=== PATIENT | female | born 1985 | race African-American/Black ===

== ENCOUNTER 2017-08-24 11:13 | Emergency (ER) | payer OTHER ==
[2017-08-24] MEDS: PANTOPRAZOLE 40 MG INJ IV (12:53)
[2017-08-24] MEDS: morphine 4 MG/ML VIAL IV (12:53)
[2017-08-24] MEDS: ONDANSETRON 4 MG INJ IV (12:53)
[2017-08-24] MEDS: SOD CHLORIDE 0.9% 1,000 ML IV (12:53)
[2017-08-24 13:00] LABS: ADD MAN DIFF? NO
[2017-08-24 13:02] LABS: WHITE BLOOD COUNT 9.6 10^3/ul (4.8-10.8)
[2017-08-24 13:02] LABS: BASOPHILS % 0.3 % (0.0-2.0); HEMATOCRIT 40.4 % (37.0-47.0); HEMOGLOBIN 13.3 g/dl (12.0-16.0); LYMPHOCYTES # 0.9 10^3/ul (0.8-2.9); LYMPHOCYTES % 8.9 % (15.0-51.0); MEAN CORPUSCULAR HEMOGLOBIN 28.1 pg (29.0-33.0); MEAN CORPUSCULAR HGB CONC 32.9 g/dl (32.0-37.0); MEAN CORPUSCULAR VOLUME 85.2 fl (82.0-101.0); MEAN PLATELET VOLUME 9.8 fl (7.4-10.4); MONOCYTE # 0.2 10^3/ul (0.3-0.9); MONOCYTES % 2.5 % (0.0-11.0); NEUTROPHIL # 8.4 10^3/ul (1.6-7.5); NEUTROPHILS % 87.9 % (39.0-77.0); PLATELET COUNT 232 10^3/UL (140-415); RED BLOOD COUNT 4.74 10^6/ul (4.20-5.40); RED CELL DISTRIBUTION WIDTH 13.8 % (11.5-14.5)
[2017-08-24 13:07] LABS: ADD UMIC YES; UR ASCORBIC ACID 40 mg/dL (NEGATIVE); UR BILIRUBIN (Dip) NEGATIVE (NEGATIVE); UR BLOOD (Dip) 2+ mg/dL (NEGATIVE); UR CLARITY SLIGHTLY CLOUDY (CLEAR); UR COLOR YELLOW (YELLOW); UR GLUCOSE (Dip) 2+ mg/dL (NEGATIVE); UR KETONES (Dip) 1+ mg/dL (NEGATIVE); UR LEUKOCYTE ESTERASE (Dip) TRACE Leu/ul (NEGATIVE); UR MUCUS FEW /HPF (NONE SEEN); UR NITRITE (Dip) NEGATIVE (NEGATIVE); UR RBC 92 /HPF (0-5); UR SPECIFIC GRAVITY (Dip) 1.032 (1.003-1.030); UR SQUAMOUS EPITHELIAL CELL FEW /HPF (FEW); UR TOTAL PROTEIN (Dip) 2+ mg/dl (NEGATIVE); UR UROBILINOGEN (Dip) NEGATIVE (NEGATIVE); UR WBC 5 /HPF (0-5)
[2017-08-24 13:22] LABS: ALANINE AMINOTRANSFERASE 26 IU/L (13-69); ALBUMIN 4.6 g/dl (3.3-4.9); ALBUMIN/GLOBULIN RATIO 1.53; ALKALINE PHOSPHATASE 96 IU/L (42-121); AMYLASE 92 U/L (11-123); ANION GAP 16 (8-16); ASPARTATE AMINO TRANSFERASE 25 IU/L (15-46); BILIRUBIN,INDIRECT 0.2 mg/dl (0-1.1); BILIRUBIN,TOTAL 0.2 mg/dl (0.2-1.3); BLOOD UREA NITROGEN 20 mg/dl (7-20); CALCIUM 9.7 mg/dl (8.4-10.2); CARBON DIOXIDE 23 mmol/L (21-31); CHLORIDE 105 mmol/L (97-110); CREATININE 0.75 mg/dl (0.44-1.00); GLUCOSE 167 mg/dl (70-220); LIPASE 75 U/L (23-300); POTASSIUM 3.6 mmol/L (3.5-5.1); SODIUM 140 mmol/L (135-144); TOTAL PROTEIN 7.6 g/dl (6.1-8.1)
[2017-08-24] MEDS: HYDROmorphONE 1 MG/ML SYG IV (13:29)
== END 2017-08-24 16:07 | disposition home or self-care (01) ==
LOC: FTE 11:13
DX: N20.0 Calculus of kidney (principal); F17.210 Nicotine dependence, cigarettes, uncomplicated
CPT/HCPCS: 74176; 80053; 81001; 82150; 83690; 85025; 87086; 96374; 96375; 99285-25

== ENCOUNTER 2017-11-20 04:01 | Emergency (ER) | payer OTHER ==
[2017-11-20] MEDS: PANTOPRAZOLE 40 MG INJ IV (04:50)
[2017-11-20] MEDS: ONDANSETRON 4 MG INJ IV (04:51)
[2017-11-20] MEDS: morphine 4 MG/ML VIAL IV (04:51)
[2017-11-20] MEDS: SOD CHLORIDE 0.9% 1,000 ML IV (04:51)
[2017-11-20 05:14] LABS: WHITE BLOOD COUNT 8.8 10^3/ul (4.8-10.8)
[2017-11-20 05:14] LABS: ADD MAN DIFF? NO; BASOPHILS % 0.1 % (0.0-2.0); HEMATOCRIT 39.5 % (37.0-47.0); HEMOGLOBIN 12.8 g/dl (12.0-16.0); LYMPHOCYTES # 0.7 10^3/ul (0.8-2.9); LYMPHOCYTES % 7.8 % (15.0-51.0); MEAN CORPUSCULAR HEMOGLOBIN 28.3 pg (29.0-33.0); MEAN CORPUSCULAR HGB CONC 32.4 g/dl (32.0-37.0); MEAN CORPUSCULAR VOLUME 87.4 fl (82.0-101.0); MEAN PLATELET VOLUME 10.4 fl (7.4-10.4); MONOCYTE # 0.2 10^3/ul (0.3-0.9); MONOCYTES % 2.7 % (0.0-11.0); NEUTROPHIL # 7.8 10^3/ul (1.6-7.5); NEUTROPHILS % 89.2 % (39.0-77.0); PLATELET COUNT 231 10^3/UL (140-415); RED BLOOD COUNT 4.52 10^6/ul (4.20-5.40); RED CELL DISTRIBUTION WIDTH 14.4 % (11.5-14.5)
[2017-11-20 05:36] LABS: COCAINE Positive (NEGATIVE)
[2017-11-20 05:37] LABS: ALANINE AMINOTRANSFERASE 35 IU/L (13-69); ALBUMIN 4.4 g/dl (3.3-4.9); ALBUMIN/GLOBULIN RATIO 1.41; ALKALINE PHOSPHATASE 102 IU/L (42-121); ANION GAP 18 (8-16); ASPARTATE AMINO TRANSFERASE 26 IU/L (15-46); BILIRUBIN,INDIRECT 0.3 mg/dl (0-1.1); BILIRUBIN,TOTAL 0.3 mg/dl (0.2-1.3); BLOOD UREA NITROGEN 17 mg/dl (7-20); CALCIUM 9.4 mg/dl (8.4-10.2); CARBON DIOXIDE 24 mmol/L (21-31); CHLORIDE 108 mmol/L (97-110); CREATININE 0.76 mg/dl (0.44-1.00); GLUCOSE 152 mg/dl (70-220); LIPASE 76 U/L (23-300); POTASSIUM 4.2 mmol/L (3.5-5.1); SODIUM 146 mmol/L (135-144); TOTAL PROTEIN 7.5 g/dl (6.1-8.1)
[2017-11-20 05:38] LABS: AMPHETAMINE/METHAMPHETAMINE Negative (NEGATIVE); BARBITURATES Negative (NEGATIVE); BENZODIAZEPINES Negative (NEGATIVE); CANNABINOIDS Positive (NEGATIVE); ETHANOL < 10.0 mg/dl; OPIATES Negative (NEGATIVE)
[2017-11-20 06:10] LABS: URINE BLOOD (Dip) POC 2+ (NEGATIVE); URINE KETONES (Dip) POC 2+ (NEGATIVE); URINE LEUKOCYTE EST (Dip) POC Negative (NEGATIVE); URINE NITRITE (Dip) POC Negative (NEGATIVE); URINE TOTAL PROTEIN POC 2+ (NEGATIVE)
[2017-11-20 06:10] LABS: URINE PH (Dip) POC >=9.0 (5.0-8.5)
== END 2017-11-20 06:24 | disposition home or self-care (01) ==
LOC: E/R 04:01
DX: R10.84 Generalized abdominal pain (principal); F14.10 Cocaine abuse, uncomplicated; F12.10 Cannabis abuse, uncomplicated
CPT/HCPCS: 36415; 74176; 80053; 80306; 80307; 81003; 81025; 83690; 84703; 85025; 96374; 96375; 99285-25

== ENCOUNTER 2018-01-03 15:26 | Emergency (ER) | payer OTHER ==
[2018-01-03] MEDS: KETOROLAC 60 MG INJ IM (16:44)
[2018-01-03] MEDS: CEFTRIAXONE 1 GM INJ IM (16:45)
== END 2018-01-03 17:02 | disposition home or self-care (01) ==
LOC: FTE 17:02
DX: L02.31 Cutaneous abscess of buttock (principal); F17.210 Nicotine dependence, cigarettes, uncomplicated
CPT/HCPCS: 96372; 99284-25

== ENCOUNTER 2018-01-07 06:19 | Emergency (ER) | payer OTHER ==
[2018-01-07] MEDS: LIDOCAINE 1% (MDV) 10 ML INJ INFIL (07:26)
== END 2018-01-07 08:37 | disposition home or self-care (01) ==
LOC: FTE 06:19
DX: L02.31 Cutaneous abscess of buttock (principal); R40.2412 Glasgow coma scale score 13-15, at arrival to emergency department
CPT/HCPCS: 10061; 99282-25

== ENCOUNTER 2018-08-05 15:13 | Emergency (ER) | payer OTHER ==
[2018-08-05 15:52] LABS: ADD MAN DIFF? NO
[2018-08-05] MEDS: SOD CHLORIDE 0.9% 1,000 ML IV (15:52)
[2018-08-05] MEDS: KETOROLAC 15 MG INJ IV (15:52)
[2018-08-05] MEDS: ONDANSETRON 4 MG INJ IV (15:52)
[2018-08-05 15:57] LABS: WHITE BLOOD COUNT 13.2 10^3/ul (4.8-10.8)
[2018-08-05 15:57] LABS: BASOPHILS % 0.3 % (0.0-2.0); EOSINOPHILS # 0.1 10^3/ul (0.0-0.5); EOSINOPHILS % 1.1 % (0.0-7.0); HEMATOCRIT 41.8 % (37.0-47.0); HEMOGLOBIN 13.4 g/dl (12.0-16.0); LYMPHOCYTES # 1.9 10^3/ul (0.8-2.9); MEAN CORPUSCULAR HGB CONC 32.1 g/dl (32.0-37.0); MEAN CORPUSCULAR VOLUME 87.3 fl (82.0-101.0); MONOCYTE # 0.7 10^3/ul (0.3-0.9); MONOCYTES % 5.6 % (0.0-11.0); NEUTROPHIL # 10.4 10^3/ul (1.6-7.5); NEUTROPHILS % 78.7 % (39.0-77.0); PLATELET COUNT 222 10^3/UL (140-415); RED BLOOD COUNT 4.79 10^6/ul (4.20-5.40)
[2018-08-05] MEDS: DICYCLOMINE 20 MG INJ IM (16:08)
[2018-08-05 16:14] LABS: ALANINE AMINOTRANSFERASE 35 IU/L (13-69); ALBUMIN 4.3 g/dl (3.3-4.9); ALBUMIN/GLOBULIN RATIO 1.38; ALKALINE PHOSPHATASE 92 IU/L (42-121); ANION GAP 7 (5-13); ASPARTATE AMINO TRANSFERASE 36 IU/L (15-46); BILIRUBIN,INDIRECT 0.3 mg/dl (0-1.1); BILIRUBIN,TOTAL 0.3 mg/dl (0.2-1.3); BLOOD UREA NITROGEN 16 mg/dl (7-20); CALCIUM 9.5 mg/dl (8.4-10.2); CARBON DIOXIDE 26 mmol/L (21-31); CHLORIDE 108 mmol/L (97-110); CREATININE 0.91 mg/dl (0.44-1.00); Estimated GFR > 60 mL/min (>60); GLUCOSE 135 mg/dl (70-220); LIPASE 113 U/L (23-300); POTASSIUM 3.8 mmol/L (3.5-5.1); SODIUM 141 mmol/L (135-144); TOTAL PROTEIN 7.4 g/dl (6.1-8.1)
[2018-08-05] MEDS: LORAZEPAM 2 MG INJ IV (16:29)
== END 2018-08-05 17:32 | disposition home or self-care (01) ==
LOC: E/R 15:13
DX: K22.6 Gastro-esophageal laceration-hemorrhage syndrome (principal); R11.0 Nausea
CPT/HCPCS: 36415; 80053; 83690; 84703; 85025; 96372; 96374; 96375; 99284-25